=== PATIENT | female | born 1985 | race Caucasian/White ===

== ENCOUNTER 2019-04-11 00:53 | Outpatient (CLI) | payer OTHER, SELFPAY ==
--- NOTE | 2019-04-11 10:36 | DI.MRI_ITS ---
SYMPTOMS/DIAGNOSIS: MIGRAINE, G43.909, STARTED AFTER TRAUMA, WORSE DURING MENSES, ? STRUCTURAL ISSUES BRAIN MRI: MRI examination of the brain was performed according to the usual protocol. Ventricular system is normal in appearance. No signal abnormality identified in the brain. There is normal flow void in the [place] vasculature. The orbital and temporal bone structures appear intact. Diffusion weighted imaging is within normal limits with no evidence of cerebral infarction. Susceptibility weighted imaging shows no evidence of hemorrhage. CONCLUSION: Normal brain MRI.
== END 2019-04-11 01:13 ==
PROVIDERS: PCP Physician Assistant; Visit Provider Physician Assistant
DX: G43.909 Migraine, unspecified, not intractable, without status migrainosus (principal)
CPT/HCPCS: 70551

== ENCOUNTER 2025-05-12 10:09 | Emergency (ER) | payer SELFPAY ==
[2025-05-12] VITALS (42 sets, daily range): BP systolic 111–128; BP diastolic 68–90; PULSE 69–111; RESP 11–26; TEMP 36.8; O2SAT 98–100
--- NOTE | 2025-05-12 10:00 | RT.EKG_ITS ---
APPROVED REPORT Exam: Resting ECG Reason for Exam: CHest Patient Location: E HR:92 bpm ECG Measurements Heart Rate 92 AXIS AR 140 P 68 QRSd 78 QRS 78 QT 355 T 69 QTc 440 Conclusion Sinus rhythm...normal P axis, V-rate 60- 99
[2025-05-12 10:56] LABS: Abs Immature Grans 0.01 10^3/uL (0.0-0.06); HCT 34.5 % (36.0-46.0); HGB 10.8 g/dL (11.2-15.7); Immature Grans % 0.2 %; MCH 23.9 pg (27.0-33.0); MCHC 31.3 % (32.0-36.0); MCV 76 fL (80-95); MPV 10.2 fL (8.0-11.0); Platelet Count 287 10^3/uL (130-400); RBC 4.52 10^6/uL (3.93-5.22); RDW 16.2 % (11.7-14.6); RDW-SD 44.5 fL; WBC 5.08 10^3/uL (4.4-10.8)
[2025-05-12 11:19] LABS: ALT 19 U/L (14-59); AST 16 U/L (15-37); Albumin 4.1 g/dL (3.4-5.0); Alkaline Phosphatase 37 U/L (46-116); Anion Gap 16.0 mmol/L (3-11); BUN 8 mg/dL (7-18); Bilirubin, Total 0.7 mg/dL (0.2-1.0); CO2 19.0 mmol/L (21.0-32.0); Calcium 9.5 mg/dL (8.5-10.1); Chloride 104 mmol/L (98-107); Estimated GFR 123.04 (mL/min/1.73m2); Glucose 88 mg/dL (74-106); Magnesium 2.0 mg/dL (1.8-2.4); Potassium 3.5 mmol/L (3.5-5.1); Sodium 139 mmol/L (136-145); TSH (W/Ref FT4) 3.33 uIU/mL (0.36-3.74); Total Protein 7.6 g/dL (6.4-8.2); Troponin I 5 ng/L (<or=51)
[2025-05-12 11:20] LABS: D-Dimer 206 ng/mlFEU (<500)
--- NOTE | 2025-05-12 11:45 | DI.RAD_ITS ---
Exam(s) XR CHEST 2V PA LATERAL EXAM: XR CHEST 2V PA LATERAL CLINICAL HISTORY: chest pain TECHNIQUE: 2D digital imaging was performed of the chest. Two images were obtained. PA and lateral views were obtained. COMPARISON: CR CHEST 2 VIEWS PA,LAT from 11/08/2015 CR CHEST 2 VIEWS PA,LAT from 11/10/2015 FINDINGS: MEDIASTINUM: Normal. HEART: Normal. PULMONARY VASCULATURE: Normal. LUNGS: Clear. PLEURAL SPACE: No pleural effusion or pneumothorax. BONE:Within normal limits for the patient's age. OTHER FINDINGS:Normal. IMPRESSION: No acute pulmonary findings. DATA REPOSITORY: RADIATION DOSE DELIVERED:
--- NOTE | 2025-05-12 11:45 | DI.CT_ITS ---
Exam(s) CT ABDOMEN PELVIS W EXAM: CT ABDOMEN PELVIS W CLINICAL HISTORY: abdominal pain, lower abdominal region TECHNIQUE: Imaging Protocol: Axial computed tomography images with coronal and sagittal reformatted images were created and reviewed. CONTRAST MATERIAL: Intravenous: Omnipaque 350 Contrast volume:75 mL Oral: No COMPARISON: No exams were available for comparison FINDINGS: ABDOMEN: Lung Bases: No acute abnormality. Liver: Normal density. No measurable mass. Portal, Superior Mesenteric, and Splenic Veins: Unremarkable. Gallbladder and Biliary Tract: No radiodense calculus or dilation. Pancreas: Normal density, no abnormal calcifications or inflammatory process. Spleen: Normal. Adrenals: No masses seen. Kidneys: Normal size, contour and axis. No radiodense stones or obstructive uropathy. There are few tiny hypodensities in the kidneys. They are too small for further characterization but likely reflect small cysts. No follow-up is recommended. Abdominal Aorta: Abdominal portion non-dilated. Bowel: No obstruction or bowel wall thickening. Appendix is unremarkable. There is stool throughout the colon particularly in the rectum. There is no rectal wall thickening. There is no pneumatosis. Peritoneal Cavity: No ascites, collection or mesenteric inflammatory response. No free air. Lymph Nodes: Within normal limits. Bones: Within normal limits for the patient's age. Soft Tissues: Unremarkable. PELVIS: Bladder: The urinary bladder is well distended. No intraluminal mass or wall thickening is seen. Reproductive Organs: There is a 2.3 cm right adnexal cyst which is likely ovarian. Lymph Nodes: Within normal limits. Bones: Within normal limits for the patient's age. IMPRESSION: 1. There is no acute abdominal or pelvic process. 2. There is a normal appendix. There is no evidence of cholelithiasis or biliary ductal dilatation. There is no evidence of nephrolithiasis or hydronephrosis. 3. 2.3 cm right adnexal cyst which is likely a physiologic ovarian cyst. 4. Moderate amount of stool in the colon particularly in the rectum. There is no rectal wall thickening. RADIATION DOSE DELIVERED: 454.86mGy.cm Total DLP DATA REPOSITORY: All CT scans at this facility are submitted to the National Radiology Data Registry (NRDR) Dose Index Registry (DIR) with the [employer] (A[employer]). RADIATION OPTIMIZATION: All CT scans at this facility use at least one of these dose optimization techniques: automated exposure control; mA and/or kV adjustment per patient size (includes targeted exams where dose is matched to clinical indication); or iterative reconstruction.
[2025-05-12] MEDS: Normal Saline - Diluent 50 ML VIAL IJ (11:55)
[2025-05-12] MEDS: Omnipaque 350 MG/ML 100 ML BTL 75 ML IJ (11:56)
[2025-05-12] MEDS: Normal Saline Flush 10 ML SYR IVP (11:56)
[2025-05-12 12:18] LABS: Troponin I 7 ng/L (<or=51)
[2025-05-12 15:21] LABS: Glucose Negative (Negative)
--- NOTE | 2025-05-12 15:21 | W.ED.GENAD ---
Discharge Plan Disposition Patient Disposition: Home Discharge Details Clinical Impression: Chest pain, Abdominal pain, Menorrhagia, Ovarian cyst, Anemia Primary Care Provider: Carlos Wayne ED Provider: Fela Sanders Home Meds and New Rx's Prescriptions: Continued albuterol sulfate 90 mcg/actuation HFA aerosol inhaler 2 puff Inhalation Q4H PRN PRN (Reason: bronchospasm) Qty: 3 3RF fluticasone propionate [Flovent HFA] 220 mcg/actuation HFA aerosol inhaler 2 inh inhalation DAILY PRN Discharge Instructions Instructions: Constipation, Adult ED, Heavy Periods ED Additional Instructions: Please follow-up with gynecology have prunes daily or metameucil to assist with constipation you are anemic,likely from heavy periods-please follow-up with concrete vault maker (i have placed referral) please follow-up with [facility] to establish with new pcp please return should you develop fever, chills, or should any new concerns arise Referrals: Carlos Wayne DO [Primary Care Provider, Medicine] HPI General Date/Time Provider Initiated Documentation: 05/12/25 10:09. HPI Narrative: 39-year-old female with chest pain, dyspnea, and vaginal bleeding starting just prior to arrival. Concerned due to brother's AK at age 42. Reports stress-related chest pain and dyspnea, no calf pain/swelling, no recent back surgeries, no joint pain, no coagulopathy. Vaginal bleeding for 7 days,Appears dehydrated (gap 16), refuses IV fluids but willing to drink fluids. Difficulty urinating, reports large stool in rectum, declines rectal exam. Related Data Home Medications ?Medication ?Instructions ?Recorded ?Confirmed albuterol sulfate 90 mcg/actuation 2 puff inhalation Q4H PRN PRN 08/16/24 05/12/25 aerosol inhaler bronchospasm #3 multiple units fluticasone propionate 220 2 inh inhalation DAILY PRN 05/12/25 05/12/25 mcg/actuation HFA aerosol inhaler (Flovent HFA) Previous Rx's ?Medication ?Instructions ?Recorded albuterol sulfate 90 mcg/actuation 2 puff inhalation Q4H PRN PRN 08/16/24 aerosol inhaler bronchospasm #3 multiple units Allergies Allergy/AdvReac Type Severity Reaction Status Date / Time cat dander Allergy Intermediate HIVES, Verified 05/12/25 10:24 HAYFEVER grass pollen Allergy Unknown HAYFEVER Verified 05/12/25 10:24 General Stated Complaint: Chest Pain DOMI: 2 Exam Narrative Exam Narrative: General Appearance: Alert, oriented, anxious, very anxious. Vital signs: Within normal limits. HEENT: Within normal limits. Respiratory: Lungs clear. Gastrointestinal: Abdominal tenderness in RLQ without rebound/guarding. Genitourinary: Distended bladder. Extremities: No calf swelling/tenderness. Skin: Warm and dry, no rash. Neurological: Normal. Psychiatric: Very anxious. Course Vital Signs Vital signs: Vital Signs Temperature 36.8 C 05/12/25 10:13 Pulse 111 H 05/12/25 10:13 Respiratory Rate 16 05/12/25 10:13 Blood Pressure 124/90 05/12/25 10:13 Pulse Oximetry 98 05/12/25 10:13 Temperature 36.8 C 05/12/25 10:13 Temperature Source Oral 05/12/25 10:13 Pulse 82 05/12/25 12:46 Pulse 82 05/12/25 12:50 Respiratory Rate 15 05/12/25 12:50 Respiratory Effort Normal 05/12/25 10:55 Blood Pressure 128/79 05/12/25 12:46 Blood Pressure Mean 94 05/12/25 12:46 Blood Pressure Position Sitting 05/12/25 10:13 Pulse Oximetry 100 05/12/25 12:32 Oxygen Delivery Method Room Air 05/12/25 10:13 Oxygen Flow Rate 0 05/12/25 10:13 Pain Level 7 05/12/25 10:13 Lab/Test Results Lab/Test Results: Laboratory Tests Range/Units 05/12/25 05/12/25 10:43 11:42 WBC (4.4-10.8) 10^3/uL 5.08 RBC (3.93-5.22) 10^6/uL 4.52 Hgb (11.2-15.7) g/dL 10.8 L Hct (36.0-46.0) % 34.5 L MCV (80-95) fL 76 L MCH (27.0-33.0) pg 23.9 L MCHC (32.0-36.0) % 31.3 L RDW (11.7-14.6) % 16.2 H Plt Count (130-400) 10^3/uL 287 MPV (8.0-11.0) fL 10.2 Immature Gran % % 0.2 Neutrophils % % 69.7 Lymphocytes % % 23.2 Monocytes % % 6.3 Eosinophils % % 0.2 Basophils % % 0.4 Nucleated RBC % (0.0-0.3) % 0.0 Absolute Neutrophils (1.2-6.7) 10^3/uL 3.54 Absolute Lymphocytes (1.2-3.4) 10^3/uL 1.18 L Absolute Monocytes (0.1-0.8) 10^3/uL 0.32 Absolute Eosinophils (0.0-0.7) 10^3/uL 0.01 Absolute Basophils (0.0-0.2) 10^3/uL 0.02 D-Dimer (<500) ng/mlFEU 206 Sodium (136-145) mmol/L 139 Potassium (3.5-5.1) mmol/L 3.5 Chloride (98-107) mmol/L 104 Carbon Dioxide (21.0-32.0) mmol/L 19.0 L Anion Gap (3-11) mmol/L 16.0 H BUN (7-18) mg/dL 8 Creatinine (0.55-1.02) mg/dL 0.5 L Est GFR (CKD-EPI 2020) (mL/min/1.73m2) 123.04 Glucose (74-106) mg/dL 88 Calcium (8.5-10.1) mg/dL 9.5 Magnesium (1.8-2.4) mg/dL 2.0 Total Bilirubin (0.2-1.0) mg/dL 0.7 AST (15-37) U/L 16 ALT (14-59) U/L 19 Alkaline Phosphatase (46-116) U/L 37 L Troponin I (<or=51) ng/L 5 7 Total Protein (6.4-8.2) g/dL 7.6 Albumin (3.4-5.0) g/dL 4.1 TSH (0.36-3.74) uIU/mL 3.33 POC- Test(urine) Negative Medical Decision Making - Laboratory Studies: - Hb: 10.8 - Hct: 34.5 - Gap: 16 mildly anemic (Hb 10.8, Hct 34.5), no recent CBC since 2016. Initial Assessment: 39-year-old female presents with reported chest pain, shortness of breath, and vaginal bleeding. Concerned due to family history of AK at age 43. Feeling generally unwell. Differential Diagnosis: - AK: Family history, chest x-ray negative. Follow-up with PCP. - Menorrhagia: 7 days bleeding, mild anemia. Referral to waterproofing mixer. - Dehydration: Gap 16, refuses IV fluids, willing to drink fluids. - Urinary retention: Difficulty urinating, distended bladder. Straight catheterization. - Constipation: Large stool in rectum, declines rectal exam. Magnesium citrate enema suppository, follow-up with colonoscopy. ED Course: - Straight catheterization - Magnesium citrate enema suppository administered Final Assessment: Straight catheterization and magnesium citrate enema suppository administered. Chest x-ray negative. Mild anemia due to menorrhagia. Dehydration noted. Urinary retention and constipation addressed. Clinical Impression: - AK unlikely - Menorrhagia - Dehydration - Urinary retention - Constipation Disposition: - Discharge home, declined manual disimpaction - Follow-Up: Establish with PCP, referral to waterproofing mixer, colonoscopy recommended Patient Education: Encouraged to drink fluids, follow-up with colonoscopy, referral to waterproofing mixer. PFSH All Active Problems (Updated 05/12/25 @ 13:16 by TEE Gray) Anemia (Chronic) Ovarian cyst (Acute) Menorrhagia (Acute) Abdominal pain (Acute) Chest pain (Acute) Asthma (Chronic) Depression (Chronic) Anxiety, generalized (Acute) GERD (gastroesophageal reflux disease) (Chronic) Migraine (Chronic) Anemia (Chronic) Medical History Family history of sudden cardiac in brother Family history of breast cancer in first degree relative Seasonal allergies Family History Mother Breast cancer Rheumatoid arthritis Osteoarthritis Fibromyalgia Asthma Father Hypertension Myocardial infarction X2 Brother , sudden cardiac age 42 No problems noted. Paternal Grandfather Diabetes Coronary artery disease Maternal Grandfather Diabetes Maternal Grandmother Breast cancer Parkinson disease Paternal Grandmother Breast cancer Social History (Updated 02/21/24 @ 18:27 by Becky Macario LPN) Smoking/Tobacco Use Status: Never Smoking risk assessment performed?: Yes Alcohol Intake: current Alcohol Intake frequency: holidays/special occasions only Drug use: Never Substance use type: does not use Counseling given: No Adopted: No Caregiver/Support person: No Foster care: No Household members: significant other Housing: house Number of Children: 0 Communication Needs: None Education Level: master's degree Do you need help understanding health information?: Never current occupation: [employer] at [employer] Pets and animals: Yes Pets and animals: cat(s) and dog(s) Sexually active: Yes Do you think of yourself as: straight/heterosexual Current gender identity: female What is your relationship status?: living with partner How often do you talk on the phone with friends or family?: twice per week How often do you get together with friends or relatives?: never Panel score (0-1 are the most socially isolated patients): 1 NHANES result reviewed/action taken: No What type of physical activity do you participate in: walking and yoga Duration: 30-45 minutes/day Frequency: daily Seatbelt use: always Helmet use: Yes Drive intox or ride w/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
[2025-05-12 15:27] LABS: C & S Indicated? No; RBC 0-2 HPF (0-2); WBC Negative HPF (0-5)
[2025-05-12] MEDS: LORazepam 20 MG/10 ML VIAL IVP (15:35)
[2025-05-12] MEDS: Glycerin Adult Suppository JAR 1 SUPP PR (15:54)
[2025-05-12] MEDS: Magnesium Citrate 300 ML BTL PO (15:54)
== END 2025-05-12 16:00 | disposition home or self-care (01) ==
PROVIDERS: Emergency Provider Physician Assistant; PCP Family Medicine
DX: N92.0 Excessive and frequent menstruation with regular cycle; D64.9 Anemia, unspecified; R10.9 Unspecified abdominal pain; R33.8 Other retention of urine; R07.9 Chest pain, unspecified; N83.201 Unspecified ovarian cyst, right side
CPT/HCPCS: 99284 ×2; 36415; 36416; 82962; 51701; 81025; 96374; 51798; 80053; 93005; 71046; 74177; 81003; 81015; 83735; 84443; 84484; 85025; 85379; 93010; J2060; J3490